=== PATIENT | male | born 2000 | race Caucasian/White ===

== ENCOUNTER 2019-02-09 08:30 | Outpatient (RCR) | payer OTHER, SELFPAY ==
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
--- NOTE | 2019-01-15 14:34 | HP.OTCOM ---
OT Communication Note 01/15/[address] LAKESHA MCGRATH Completed new measurements on this date as he has follow- up with Dr. Asher on Tuesday01/19/19. ROM: wrist - flexion: R Casted; unable at this time; L 0-71 - extension: R Casted; unable at this time; L 0-44 - radial deviation: R Casted; unable at this time; L 0-15 - ulnar deviation: R Casted; unable at this time; L 0-15 Forearm - pronation: R Casted; unable at this time; L 0-60 - supination: R Casted; unable at this time; L 0-86 Strength: - warehouse delivery driver in flexed position 2: R completed casted 62 , L 54 lbs - warehouse delivery driver in extended position 2: R completed casted 72 lbs , L 45 lbs - lateral pinch R completed in cast 15 , L 16 lbs - tripod R completed in cast 13 lbs, L 16 lbs - pincer R completed in cast 10 lbs, L 10 lbs 9-hole pegboard test: - R completed casted 20.90 s - L 21.13 s Jann has progressed significantly since initial evaluation. R wrist remains casted and therapy has focused on L hand, wrist, and forearm. L wrist remains stiff and further strengthening needed. Further therapy needed to promote progression to PLOF and address ergonomic, strength, and ROM concerns. Once cast is removed of R hand and wrist reassessment to be completed for RUE. Sincerely, Mitzy Mcdaniel, OTR/L Contact Information
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
== END 2019-02-09 17:00 | disposition home or self-care (01) ==
LOC: OT 08:30
PROVIDERS: Family Provider Pediatrics; PCP Pediatrics
DX: S72.302D Unspecified fracture of shaft of left femur, subsequent encounter for closed fracture with routine healing (principal); S52.202D Unspecified fracture of shaft of left ulna, subsequent encounter for closed fracture with routine healing; S92.302D Fracture of unspecified metatarsal bone(s), left foot, subsequent encounter for fracture with routine healing; D50.0 Iron deficiency anemia secondary to blood loss (chronic); R26.9 Unspecified abnormalities of gait and mobility
CPT/HCPCS: 97110; 97140; 97161; 97166; 97168; 97530; 97760

== ENCOUNTER 2020-04-14 14:30 | Outpatient (RCR) | payer OTHER, SELFPAY ==
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
--- NOTE | 2020-03-12 16:25 | HP.PTREVAL ---
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 Please see the progress note below for an update on the physical therapy plan of care! Subjective: Not having much knee pain as before. L knee pain to 2/10 this week intermittently. Worse with lots of activity. 0-1 without overdoing it. Sleeping well. Works out at home with upper body but does leg stretches, no lower body. Not working and nothing to return too. Basic ADLs are oK. Stairs difficult climbing up. Has to sit down to put on pants. Walking not a problem except limited volume. Avoiding leg workout of lunges squats, deadlifts. X rays two weeks ago and gap is coming together, no precautions. Back in 4 more weeks. Objective/Function: Walks I with slight L tredelenberg and some minor R hip drop due to L hip weakness. Steps are reciprocal without rail but weak eccentrically adn concentrically with body eight on steps on left side. L quad tight vs R and L knee AROM 0-115 vs 135 on R. Feels stretch but no pain. quad strength 4- L and HS 4/5. Overall progressing well and appropriate to progress to land based ex with fair prognosis toward continued appropriate goals. Plan Plan: 3x/week x 4 weeks for. 1. rollout and stretch L quad,. 2. L knee ROM APROM. 3. L hip strength, quad strength and progression toward squatting and RDL gently. Goals Goal 1:: Patient will be I with HEP and progression Goal Time Frame: 4-6 Weeks Goal Progress: stretches for LE Goal 2:: Patient will ambulate >300 feet with a normalized gait pattern Goal Time Frame: 2-4 Weeks, more Goal Progress: L trendelenberg, approp. Goal 3:: Patient will asc/desc 8 recip with 1 HR with good control Goal Time Frame: 4 weeks approp Goal Progress: iffy on control L, approp Goal 4:: Patient will demo an a +1 grade strength in LE Goal Time Frame: 4-6 Weeks Goal Progress: ? Goal 5:: Patient will maintain proper posture t/o tx session to demo increased core s/s Goal Time Frame: 4-6 Weeks Goal Progress: Goal Met Goal 6:: Patient will SLS for 30 seconds without increased muscle activation Goal Time Frame: 4-6 Weeks Goal Progress: Goal Met Anticipated Interventions Patient/Client Instruction: Educate patient on: Benefits of Fitness Program Therapeutic Exercise to Include: Strength training, Endurance training, Balance training, Agility training, Body mechanics, Postural training, Flexibilty training, Gait and locomotor training, Neuromotor development, In an aquatic setting, Dynamic Lumbar Stabilization For the Purpose of:: To improve muscle performance and motor function Please do not hesitate to contact me at [phone] by phone or if you have questions or concerns regarding this new plan of care! Sincerely, Jaylan Ireland, DPT, OCS, CSCS
--- NOTE | 2020-04-14 15:07 | HP.PTDCSUM ---
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 Discharge Date: Please see the following information for a summary of their discharge status. Subjective: I am still getting better LLE Pain Intensity (Out of 10): 0 % Improvement: 50 Objective/Function: L LE strength grossly 4+/5. Pt ambulates greater than 400 feet without difficulty. Pt negotiates stairs without difficulty. I with HEP. Rx goals achieved Goal 1:: Patient will be I with HEP and progression Goal Progress: Goal Met Goal 2:: Patient will ambulate >300 feet with a normalized gait pattern Goal Progress: Goal Met Goal 3:: Patient will asc/desc 8 recip with 1 HR with good control Goal Progress: Goal Met Goal 4:: Patient will demo an a +1 grade strength in LE Goal Progress: Goal Met Goal 5:: Patient will maintain proper posture t/o tx session to demo increased core s/s Goal Progress: Goal Met Goal 6:: Patient will SLS for 30 seconds without increased muscle activation Goal Progress: Goal Met Plan: discharge If there are questions or concerns regarding this patient's physical therapy, please feel free to call me at [phone]. Thank you for the referral of this patient. Sincerely, Cale Shipley, PT, ATC
== END 2020-04-14 19:00 | disposition home or self-care (01) ==
LOC: PT 14:30
PROVIDERS: PCP Internal Medicine
DX: S72.352 Displaced comminuted fracture of shaft of left femur (principal)
CPT/HCPCS: 97110; 97113; 97162; 97164

== ENCOUNTER 2020-05-26 12:13 | Emergency (ER) | payer OTHER, SELFPAY ==
[2020-05-26 12:14] VITALS: BP 126/81; PULSE 105; RESP 17; TEMP 36.6; O2SAT 100
[2020-05-26 12:15] VITALS: BP 126/81; PULSE 91; RESP 17; TEMP 36.6; O2SAT 100; BMI 19.0
[2020-05-26] MEDS: Morphine 4 MG/ML Syringe IV (12:46)
[2020-05-26] MEDS: Ondansetron 4 MG/2 ML Vial IV (12:47)
[2020-05-26] MEDS: 0.9% Normal Saline 1,000 ML 1000 ML IV (12:47)
--- NOTE | 2020-05-26 12:50 | ED.VIS.GEN ---
History of Present Illness Chief Complaint: Abd Pain Detail of Chief Complaint: Nausea, vomiting and diarrhea with abdominal pain Informant: Patient Onset: Yesterday, Weeks Timing: Continuous - Pain has been continuous, Waxes and wanes Quality: Pain Location: Abdomen diffuse Current Severity: Moderate Maximum Severity: Severe Worsened by: Vomiting and diarrhea Relieved by: Nothing Associated Symptoms: Subjective fever Narrative: Patient is a 19-year-old male who presents with abdominal pain that is generalized described as pain with waxing and waning intensity. This is associated with nausea and vomiting. He states he vomited 3 times since this morning. He has vomited 8-10 times since last night. Is had 8-10 loose stool since last evening. Denies blood or mucus in the stool. He denies blood in his emesis or coffee-ground in his emesis. He does report subjective fever. He has no exposure to anyone who has been diagnosed with Covid 19 or symptoms suggestive of COVID-19. He denies headache. He denies visual, ocular auditory symptoms. He denies rhinorrhea, congestion or postnasal drainage. Denies sore throat. He denies chest pain. He denies cough or shortness of breath. He denies urologic symptoms. He denies rash. He denies myalgias or arthralgias. Prior similar symptoms: No Recent Illness/Hospitalization: No - Past Medical History (1) No significant past medical history Status: Acute Past Medical History - Allergies and Home Meds Allergies/Adverse Reactions: Allergies No Known Allergies Allergy (Verified 05/26/20 12:14) Primary Care Physician: Natty Gallegos DO [Primary Care Provider] - Prior records reviewed: Yes Surgical History: appendectomy Lives: Alone Smoking Status: Never smoker Alcohol: None Drugs: None - Family History Maternal Family History: Reports: No pertinent history Review of Systems General: Reports: Chills, Fever, Subjective. Denies: Sweats, Weight loss Eyes: Denies: Visual changes - bilaterally, Blurred Vision - bilaterally ENT: Denies: Rhinorrhea, Sore throat Cardiovascular: Denies: Chest pain, Palpitations Respiratory: Denies: Dyspnea, Cough, Dyspnea on exertion Gastrointestinal: Reports: Abdominal pain, Nausea, Vomiting, Diarrhea. Denies: Constipation, Melena, Hematochezia Genitourinary: Denies: Dysuria, Hematuria, Frequency Musculoskeletal: Denies: Myalgias, Arthralgias, Neck pain, Back pain, Swelling, Extremity Pain, -, - Neurological: Reports: Weakness. Denies: Headache, Parasthesia Endocrine: Denies: Polyuria, Polydipsia Hematologic: Denies: Easy bruising, Easy bleeding Physical Exam Vital Signs/Narrative: Vital Signs Temp Pulse Resp BP Pulse Ox 05/26/20 12:15 97.8 F 91 17 126/81 H 100 05/26/20 12:14 97.8 F 105 H 17 126/81 H 100 Inital Vital Signs reviewed: Yes General: Well nourished, Well developed, No Acute Distress - Initial exam patient was actively vomited and limited. He was reassessed at 12 4 5. Head: Normocephalic, Atraumatic Eyes: Perrl, EOMI. Negative for: Pale conjunctiva, Scleral icterus ENT: No rhinorrhea, TM's clear, Dry mucous membranes Neck: Supple, Nontender, No lymphadenopathy, No JVD Cardiovascular: Regular rhythm, No murmurs, Normal S1, Normal S2, Tachycardia Respiratory: No distress, CTA bilaterally Abdomen: Soft, Nondistended, No masses, Tender. Negative for: Nontender, Normal bowel sounds, Guarding, Rebound tenderness, Hyperactive bowel sounds, Hepatomegaly, Splenomegaly, Mass, Pulsatile mass, Ventral hernia, Umbilical hernia Rectal: Deferred Back: Nontender, Normal Inspection Extremities: Nontender, No edema Skin: Normal color, No rash, No Trauma. Negative for: Cyanosis, Diaphoresis, Jaundice Neurological: Alert, Oriented x3, Cranial nerves II-XII grossly intact, Normal Strength, Normal Sensation Psychological: Normal affect, Normal Mood Diagnostic/Tx/Re-eval Laboratory Results 05/26/20 12:40 Sodium 138 Potassium 4.1 Chloride 105 Carbon Dioxide 24.0 Anion Gap 9 BUN 8 Creatinine 1.19 Estim Creat Clear Calc 88.20 Est GFR (MDRD) Af Amer 98 Est GFR (MDRD) Non-Af 81 BUN/Creatinine Ratio 6.7 L Glucose 128 H Calcium 9.7 - Medical Decision Making Presents with nausea, vomiting diarrhea. Suspect viral illness. Clinically is dehydrated. He will receive 1 L of normal saline and Zofran for his nausea and vomiting. Basic metabolic panel was obtained to assess electrolytes and specifically potassium and renal function. Patient was reassessed at 1440. His vomiting has ceased. He states the nausea is 95% improved. He was prescribed p.o. dicyclomine and Imodium for his pain and diarrhea. If he passes p.o. challenge will discharge to home with appropriate home-going striction and antiemetic and antispasmodic. ED Disposition - Plan for ED Patient: Disposition: Home or Assisted Living Diagnosis: Abdominal pain, vomiting, and diarrhea, Mild dehydration Instructions: ED Vomiting and Diarrhea Nonspecific Adult Prescriptions: Dicyclomine HCl [Bentyl] 20 mg PO TIDAC #20 cap Transmission Status: Pending to [facility] Loperamide [Imodium] 2 mg PO UD #10 cap Transmission Status: Pending to [facility] Ondansetron [Zofran Odt] 4 mg PO Q8H PRN PRN #10 tab PRN Reason: Nausea Transmission Status: Pending to [facility] Referrals: Natty Gallegos DO [Primary Care Provider] - 3-5 Days if not improving
[2020-05-26 13:01] LABS: Anion Gap 9 (5-15); BUN 8 mg/dL (7-18); BUN/Creat Ratio 6.7 RATIO (10-20); Calcium,Total 9.7 mg/dL (8.5-10.1); Chloride 105 mmol/L (98-107); Creatinine, Serum 1.19 mg/dL (0.70-1.30); EST Glomerular Filtration Rate 81 mL/min (>60); Est Glom Filt Rate - Afr Amer 98 mL/min (>60); Glucose 128 mg/dL (74-106); Potassium 4.1 mmol/L (3.5-5.1); Sodium Level 138 mmol/L (136-145)
[2020-05-26 14:31] VITALS: BP 110/47; PULSE 85; RESP 16; TEMP 37.5; O2SAT 95
[2020-05-26] MEDS: Dicyclomine 10 MG Capsule 20 MG PO (15:40)
[2020-05-26] MEDS: Loperamide 2 MG Capsule 4 MG PO (15:40)
== END 2020-05-26 15:44 | disposition home or self-care (01) ==
PROVIDERS: Emergency Provider Emergency Medicine; PCP Internal Medicine
DX: E86.0 Dehydration (principal); R19.7 Diarrhea, unspecified; R10.84 Generalized abdominal pain; R11.2 Nausea with vomiting, unspecified
CPT/HCPCS: 80048; 96361; 96374; 96375; 99285; J7030; J2405

== ENCOUNTER 2021-06-08 16:00 | Outpatient (RCR) | payer OTHER, SELFPAY ==
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
== END 2021-06-08 19:00 | disposition home or self-care (01) ==
LOC: PT 16:00
PROVIDERS: PCP Internal Medicine
DX: S83.522D Sprain of posterior cruciate ligament of left knee, subsequent encounter (principal); X58.XXXD Exposure to other specified factors, subsequent encounter; M17.12 Unilateral primary osteoarthritis, left knee
CPT/HCPCS: 97110; 97161

== ENCOUNTER 2022-01-14 00:51 | Emergency (ER) | payer OTHER, SELFPAY ==
[2022-01-14 00:53] VITALS: BP 144/93; PULSE 54; RESP 18; TEMP 36.1; O2SAT 100; BMI 19.0
--- NOTE | 2022-01-14 01:13 | ED.VIS.DENTA ---
HPI History of Present Illness Chief Complaint: Dental Informant: patient Onset/Context/Timing Onset: Today (about 20 hrs) Context: Gradual Onset Timing: Continuous Quality: aching/throbbing Location: left maxillary bicuspid Current Severity: Severe Maximum Severity: Severe Worsened by: eating/chewing Relieved by: - (nothing) Associated Symptoms Assocated Symptom - Dental: Negative for fever, jaw swelling or face swelling Narrative Narrative: Dental pain gradually started earlier in the day and is worsened, unable to sleep tonight due to the throbbing pain. No swelling or discharge or bleeding. Has an appointment for a dentist tomorrow, I just need to get through the night. [facility] Medical History Femur fracture Pain, dental Home Medications amoxicillin 500 mg tablet 500 mg PO TID #30 tabs 01/14/22 [Rx Last Taken Unknown] escitalopram oxalate 20 mg tablet 20 tab PO QHS 01/14/22 [History Last Taken Unknown] naproxen 500 mg tablet 500 mg PO BID PRN #14 tabs 01/14/22 [Rx Last Taken Unknown] Allergy/AdvReac Type Severity Reaction Status Date / Time No Known Allergies Allergy Verified 01/14/22 00:52 Social History Smoking Status: Never smoker ROS ROS ED Constitutional Constitutional ED: Denies chills or fever(s) Eyes Eyes: Denies change in vision or double vision ENT ENT ED: Reports dental pain; Denies sinus pain or throat swelling Cardiovascular Cardiovascular: Denies chest pain or palpitations Respiratory/Chest Respiratory/Chest: Denies cough or dyspnea Integumentary Denies abscess or rash Neurologic Neurologic: Denies headache(s), paresthesias or weakness EXAM Physical Exam Const Vital Signs: 01/14/22 00:53 Temperature 96.9 F L Temperature Source Temporal Pulse Rate 54 L Respiratory Rate 18 Blood Pressure 144/93 H Blood Pressure Mean 110 Pulse Ox 100 Oxygen Delivery Method Room Air Positive well nourished and well developed General Appearance ED: well developed and NAD HEENT HEENT Narrative: No trismus. Tender tooth #12. There is a very small superficial samantha at the anterior aspect of the base of that tooth near the gumline. Normal gingiva, no sign of gingivitis, necrotizing gingivitis, or bleeding. No abscess. Face and Sinus: sinuses nontender Throat: posterior oropharynx normal Eyes PERRL and EOMs intact bilaterally Neck no lymphadenopathy and supple Resp normal respiratory effort Neuro oriented x3 and CN's II-XII intact bilaterally Sensorium / Orientation: alert Gait (Neuro): normal gait Psych mental status grossly normal and thought process normal Skin no rashes or lesions noted and no wounds MDM MDM MDM Narrative Medical decision making narrative: Gave this patient a [place] here as well as naproxen, start him on amoxicillin, discharged home with family. Discharge Plan Triage Chief Complaint: Dental ED Provider: Anderson Diaz Dx/Rx/DC Orders Clinical Impression: Odontalgia, Caries Instructions: ED Dental Pain Prescriptions: New amoxicillin 500 MG tablet 500 mg PO TID Qty: 30 0RF naproxen 500 MG tablet 500 mg PO BID PRN Qty: 14 0RF No Action escitalopram oxalate 20 mg tablet 20 tab PO QHS Primary Care Provider: Natty Gallegos Referrals: Natty Gallegos, [Primary Care Provider] - Dentist,Your [STAFF PHYSICIAN] - Keep [facility]a appointment Disposition Disposition: Home, Self Care
[2022-01-14] MEDS: HYDROcodone Bitartrate/Apap 5/325 Tablet PO (01:18)
[2022-01-14] MEDS: Naproxen 250 MG Tablet 500 MG PO (01:18)
[2022-01-14] MEDS: AMOXICILLIN 500 MG CAPSULE PO (01:18)
== END 2022-01-14 01:37 | disposition home or self-care (01) ==
LOC: ED 01:33
PROVIDERS: Emergency Provider Emergency Medicine; PCP Internal Medicine; Visit Provider Emergency Medicine
DX: K08.89 Other specified disorders of teeth and supporting structures (principal); K02.9 Dental caries, unspecified
CPT/HCPCS: 99283

== ENCOUNTER 2022-04-21 05:01 | Emergency (ER) | payer OTHER, SELFPAY ==
[2022-04-21 05:02] VITALS: BP 137/56; PULSE 84; RESP 16; TEMP 38.5; O2SAT 98; BMI 19.1
[2022-04-21 05:05] VITALS: BP 137/56; PULSE 87; PULSE 89; RESP 19; RESP 22; TEMP 38.5; O2SAT 100; O2SAT 98
[2022-04-21] MEDS: Acetaminophen 325 MG Tablet 1000 MG PO (05:33)
[2022-04-21] MEDS: 0.9% Normal Saline 1,000 ML 999 ML IV ×2 (05:33→07:28)
[2022-04-21] MEDS: Ondansetron 4 MG/2 ML Vial IV (05:34)
[2022-04-21] MEDS: Morphine 4 MG/ML Syringe IV (05:34)
[2022-04-21] MEDS: dexAMETHasone 10 MG/ML Vial IV (05:42)
[2022-04-21 05:44] LABS: Absolute Lymphocyte Count 0.93 X10^3/uL (0.83-4.51); Basophil# 0.04 X10^3/uL; Basophil% 0.2 % (0-1); Eosinophil# 0.09 X10^3/uL; Eosinophils% 0.4 % (0-5); Hematocrit 38.9 % (40-54); Lymphocyte # 0.93 X10^3/ul (0.83-4.51); Lymphocyte % 3.6 % (19-41); Mean Corpuscular Hgb 33.1 pg (27.0-32.0); Mean Platelet Vol. 10.7 fl (6.2-12.0); Monocyte# 2.37 X10^3/uL; Monocyte% 9.3 % (0-10); NRBC Flagged by Analyzer 0 % (0-5); Neutrophil # 21.97 X10^3/uL (2.7-7.7); Neutrophil % 85.8 % (47-70); POSITIVE DIFFERENTIAL YES; Platelet Count 201 K/mm3 (150-450); RBC Distribution Width CV 12.4 % (11.6-14.6); RBC Distribution Width SD 41.9 fl (35.1-43.9); Red Blood Count 4.23 M/mm3 (4.6-6.2); White Blood Count 25.6 K/mm3 (4.4-11.0)
[2022-04-21 05:48] LABS: Differential Indicated SCAN CRITERIA MET
--- NOTE | 2022-04-21 05:53 | CT_ITS ---
INDICATION: FLANK PAIN WITH N/V X 1 DAY. PRIOR APPENDECTOMY EXAMINATION: CT Abdomen And Pelvis W/ Contrast Injection TECHNIQUE: Helically acquired images were obtained of the abdomen and pelvis following IV contrast. 2-D reconstructions reviewed. A radiation dose optimization technique was used for this scan. IV Contrast dosage and agent: 100 mL Isovue-370 Oral contrast: None. COMPARISON: Contrast enhanced CT abdomen and pelvis from 04/21/2017 FINDINGS: LOWER CHEST: No acute findings within the imaged lung bases. Heart size within normal limits. LIVER: Mild focal fat within the left lobe adjacent to falciform ligament. No concerning lesion. GALLBLADDER AND BILIARY TREE: No calcified gallstones identified. No gallbladder wall edema demonstrated. No significant biliary ductal dilation. PANCREAS: No discrete mass or peripancreatic edema. SPLEEN: Normal size without focal cystic or solid mass. ADRENAL GLANDS: Unremarkable. KIDNEYS AND URETERS: Normal renal size and position. No perinephric edema or hydronephrosis. No concerning lesion. PERITONEUM: Trace free pelvic fluid. No free air or abscess. RETROPERITONEUM: No retroperitoneal mass or pathologic fluid collection. BOWEL: Status post appendectomy. No bowel obstruction or significant bowel thickening. No focal inflammatory change. LYMPH NODES: No enlarged mesenteric or retroperitoneal lymph nodes. VESSELS: No acute findings. No abdominal aortic aneurysm. URINARY BLADDER: Unremarkable as visualized. REPRODUCTIVE ORGANS: Slightly enlarged prostate gland containing small dystrophic calcifications. ABDOMINAL WALL: No acute findings or significant hernia defect. BONES: Small chronic limbus defect at anterior L5 vertebral body. Vertebral body heights are preserved. Adequate alignment of the spine. No acute osseous abnormality. CT/Abdomen/Pelvis W IV Cont ONLY IMPRESSION: Trace free pelvic fluid of unknown etiology or clinical significance. No other evidence of acute intra-abdominal abnormality. Slightly enlarged prostate gland. Electronically Signed: Rober Wiggins MD at 7:14 EDT ,
--- NOTE | 2022-04-21 05:53 | RAD_ITS ---
INDICATION: fever EXAMINATION/TECHNIQUE: X-RAY - XR Chest 1 View COMPARISON: None. FINDINGS: LINES/DEVICES: None. LUNGS: No pulmonary edema or focal airspace consolidation. No sizable pleural effusion. No pneumothorax detected. MEDIASTINUM AND CARDIOVASCULAR STRUCTURES: Heart size within normal limits. Mediastinal contours unremarkable. BONES AND SOFT TISSUES: No acute findings. RAD/Chest 1 View (Portable) IMPRESSION: No radiographic evidence of acute cardiopulmonary disease. Electronically Signed: Rober Wiggins MD at 6:42 EDT ,
[2022-04-21 06:05] LABS: AST(SGOT) 16 U/L (15-37); Alanine Aminotransfer ALT/SGPT 21 U/L (16-61); Albumin, Serum 3.5 g/dL (3.2-5.0); Alkaline Phosphatase 85 U/L (45-117); Anion Gap 10 (5-15); BUN 13 mg/dL (7-18); BUN/Creat Ratio 10.8 RATIO (10-20); Bilirubin, Direct 0.27 mg/dL (0.00-0.30); Calcium,Total 9.3 mg/dL (8.5-10.1); Chloride 107 mmol/L (98-107); EST Glomerular Filtration Rate 79 mL/min (>60); Est Glom Filt Rate - Afr Amer 96 mL/min (>60); Globulin 3.7 g/dL (2.2-4.2); Glucose 134 mg/dL (74-106); Lipase 68 U/L (73-393); Magnesium 1.3 mg/dL (1.6-2.6); Potassium 3.5 mmol/L (3.5-5.1); Protein, Total 7.2 g/dL (6.4-8.2); Sodium Level 139 mmol/L (136-145)
[2022-04-21 06:40] LABS: Differential Comment SCANNED
[2022-04-21 06:43] LABS: Lactic Acid 1.4 mmol/L (0.4-1.9)
[2022-04-21 06:49] LABS: Color, Urine Yellow (Yellow); Glucose, Dipstick Normal (Normal); Leukocyte Esterase-Dipstick Negative /ul (Negative); Mucous, Urine 0 SEEN /hpf (<or=2+); Nitrite-Dipstick Negative (Negative); Occult Blood-Urine Negative /ul (Negative); Protein-Dipstick 15 mg/dl (Negative); Red Blood Cells-Urine 0 SEEN /hpf (0-5); Squamous Epithelial Cells - UA 0 SEEN /hpf (0-5); Urine Bilirubin Dipstick Negative (Negative); Urine Clarity Clear (Clear); Urine Urobilinogen 1 mg/dl (Normal); White Blood Cells 0 SEEN /hpf (0-5)
[2022-04-21 06:50] VITALS: BP 140/74; PULSE 74; RESP 16; TEMP 37.7; O2SAT 98
[2022-04-21 06:57] LABS: Ketone-Dipstick 150 mg/dl (Negative)
[2022-04-21 06:58] LABS: Amorphous Sediment 1+; Bacteria 1+ /hpf (None Seen)
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
[2022-04-21 07:30] VITALS: BP 109/51; PULSE 64; RESP 16; TEMP 37.2; O2SAT 97
[2022-04-21 13:47] LABS: Pathologist Review Reviewed
== END 2022-04-21 08:44 | disposition home or self-care (01) ==
PROVIDERS: Emergency Provider Emergency Medicine; PCP Internal Medicine; Visit Provider Emergency Medicine
DX: J02.9 Acute pharyngitis, unspecified (principal); R11.2 Nausea with vomiting, unspecified; E86.0 Dehydration; R50.9 Fever, unspecified; Z20.822 Contact with and (suspected) exposure to COVID-19; Z79.52 Long term (current) use of systemic steroids; Z90.89 Acquired absence of other organs
CPT/HCPCS: 71045; 74177; 80048; 80076; 81001; 83605; 83690; 83735; 85025; 87428; 87880; 96361; 96374; 96375; 99285; J7030; Q9967; A4216; J2405

== ENCOUNTER 2023-04-04 16:24 | Outpatient (RCR) | payer OTHER, SELFPAY ==
--- NOTE | 2023-06-21 09:53 | HP.PT.NRP ---
Patient Information Patient Information: GISELA COULTER was seen in my office for initial evaluation on 04/04/23. The following Plan of Care was established for this patient: POC Established Initial Frequency: 2-3x /Week Initial Duration: 4-6 Weeks Anticipated Interventions Patient/Client Instruction: Educate patient on: Condition and Plan of Care For the Purpose of:: To improve self management Therapeutic Exercise to Include: Strength training, Balance training, Body mechanics, Gait and locomotor training, Neuromotor development and Active ROM For the Purpose of:: To decrease pain, To increase ROM and To improve muscle performance and motor function Cryotherapy (ice pack, ice massage): Yes For the Purpose of:: To decrease pain Last Seen Last Seen: This patient was last seen in our office . Pertinent comments regarding their Physical therapy will appear below: Pt was evaluated for L knee pain on the date of 04/04/23. Pt has not returned through todays date and is discontinued at this time. At this point I will be discontinuing this patient from physical therapy. I would be happy to see this patient again in the future if found appropriate by the physician. Thank you! Cale Shipley, PT, ATC Balance/Gait/Functional tests Balance/Special Test Scores Lower Extremity Functional Score: 60
== END 2023-04-04 19:00 | disposition home or self-care (01) ==
LOC: PT 16:24
PROVIDERS: PCP Internal Medicine; Referring Provider Physician Assistant; Visit Provider Physician Assistant
DX: M23.42 Loose body in knee, left knee (principal); M94.262 Chondromalacia, left knee; M24.669 Ankylosis, unspecified knee; T84.84XD Pain due to internal orthopedic prosthetic devices, implants and grafts, subsequent encounter
CPT/HCPCS: 97161

== ENCOUNTER 2023-10-11 15:30 | Outpatient (RCR) | payer OTHER, SELFPAY ==
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
--- NOTE | 2023-10-11 16:21 | HP.PTREVAL_ITS ---
Re-Evaluation Intro: JATIN ALEXANDER, It has been my pleasure to treat GISELA COULTER over the last 20 visits for s/p L ACL/PCL repair 08/04/23. Please see the progress note below for an update on the physical therapy plan of care! Subjective Subjective: 9 weeks out. going the right way, no pain. Last pain was 3 days ago from soreness. Sleep is Ok. HEP : Went to level !! yesterday adn did workout. To doctor in 2 weeks. Working at computer without difficulty. Life is normal. Wants to running. Objective Objective/Function: 0-130(140 R) AROM supine adn 125 prone. Normal walk and steps reciprocal without rail. Plan Plan Plan: f/u 3 weeks after doctor visit, pt to do workout at gym adn home in the meantime. Plan to starat gentle jogging, plyo next session as neede and progress via HEP as able. Balance/Gait/Functional tests Balance/Special Test Scores Lower Extremity Functional Score: 55 Goals Goals Goal 1:: ST: 0-90 AROM without pain Goal Time Frame: 2-4 Weeks Goal Progress: Goal Met Goal 2:: sleep without waking Goal Time Frame: 2-4 Weeks Goal Progress: Goal Met Goal 3:: LT goals: Full aROM without pain to 140 flexion Goal Time Frame: 6-8 Weeks Goal Progress: 130 no pain but stiff Goal 4:: Walk as allowed and steps reciprocally without bracing or deviations i9n community Goal Time Frame: 6-8 Weeks Goal Progress: Goal Met Goal 5:: I appropriate HEP strength to continue progress Goal Time Frame: 6-8 Weeks Goal Progress: I gym adn home Goal 6:: Plan to start jogging Goal Time Frame: 12-16 Weeks Goal Progress: appropriate. Anticipated Interventions Anticipated Interventions Patient/Client Instruction: Educate patient on: Condition For the Purpose of:: To decrease pain, To increase ROM, To improve nutrient delivery to tissue, To improve muscle performance and motor function, To increase tolerance to activity/condition/position, To improve ability of physic al actions for home/community/work/leisure and To improve gait and locomotor functions Therapeutic Exercise to Include: Strength training, Postural training, Flexibilty training, Gait and locomotor training, Passive ROM and Active ROM For the Purpose of:: To decrease pain, To decrease swelling/inflammation, To increase ROM, To improve nutrient delivery to tissue, To improve muscle performance and motor function, To increase tolerance to activity/condition/position, To improve ability of physical actions for home/community/work/leisure and To improve gait and locomotor functions Manual Therapy Techniques to Include: Scar massage, Passive ROM and Soft tissue mobilization For the Purpose of:: To decrease pain, To increase ROM and To improve nutrient delivery to tissue Functional electric stimulation: Yes Cryotherapy (ice pack, ice massage): Yes For the Purpose of:: To decrease pain, To decrease swelling/inflammation and To increase ROM Re-Evaluation Ending Re-evaluation ending: Please do not hesitate to contact me at [phone] by phone or if you have questions or concerns regarding this new plan of care! Sincerely, Jaylan Ireland, DPT, OCS, CSCS
--- NOTE | 2023-12-27 18:18 | HP.PT.NRP ---
Patient Information Patient Information: GISELA COULTER was seen in my office for initial evaluation on 08/12/23. The following Plan of Care was established for this patient: POC Established Initial Frequency: 3x /Week Initial Duration: 4 Months Anticipated Interventions Patient/Client Instruction: Educate patient on: Condition For the Purpose of:: To decrease pain, To increase ROM, To improve nutrient delivery to tissue, To improve muscle performance and motor function, To increase tolerance to activity/condition/position, To improve ability of physical actions for home/community/work/leisure and To improve gait and locomotor functions Therapeutic Exercise to Include: Strength training, Postural training, Flexibilty training, Gait and locomotor training, Passive ROM and Active ROM For the Purpose of:: To decrease pain, To decrease swelling/inflammation, To increase ROM, To improve nutrient delivery to tissue, To improve muscle performance and motor function, To increase tolerance to activity/condition/position, To improve ability of physical actions for home/community/work/leisure and To improve gait and locomotor functions Manual Therapy Techniques to Include: Scar massage, Passive ROM and Soft tissue mobilization For the Purpose of:: To decrease pain, To increase ROM and To improve nutrient delivery to tissue Functional electric stimulation: Yes Cryotherapy (ice pack, ice massage): Yes For the Purpose of:: To decrease pain, To decrease swelling/inflammation and To increase ROM Last Seen Last Seen: This patient was last seen in our office 10/11/23. Pertinent comments regarding their Physical therapy will appear below: Pt seen 20 visits of POC and was 80% better. He was to f/u a month later to ensure progress but did not attend. At this point, it has been over 2 months and I will discontinue from my care. At this point I will be discontinuing this patient from physical therapy. I would be happy to see this patient again in the future if found appropriate by the physician. Thank you! Jaylan Ireland, DPT, OCS, CSCS Balance/Gait/Functional tests Balance/Special Test Scores Lower Extremity Functional Score: 55
== END 2023-10-11 19:00 | disposition home or self-care (01) ==
LOC: PT 15:30
PROVIDERS: PCP Internal Medicine
DX: S83.512D Sprain of anterior cruciate ligament of left knee, subsequent encounter (principal); S83.52 Sprain of posterior cruciate ligament of knee
CPT/HCPCS: 97014; 97110; 97161; 97530; G0283

== ENCOUNTER 2024-11-15 23:07 | Emergency (ER) | payer OTHER, SELFPAY ==
[2024-11-15 23:11] VITALS: BP 116/80; PULSE 83; RESP 18; TEMP 36.3; O2SAT 98; BMI 18.1
[2024-11-15 23:15] VITALS: BP 116/80; PULSE 83; RESP 18; TEMP 36.3; O2SAT 98
[2024-11-16 00:11] LABS: Red Blood Cells-Urine 0 SEEN /hpf (0-5)
[2024-11-16 00:32] LABS: Color, Urine Amber (Yellow); Glucose, Dipstick Normal (Normal); Ketone-Dipstick Negative (Negative); Leukocyte Esterase-Dipstick 25 /ul (Negative); Nitrite-Dipstick Negative (Negative); Occult Blood-Urine 250 /ul (Negative); Protein-Dipstick 30 mg/dl (Negative); Urine Bilirubin Dipstick Negative (Negative); Urine Clarity Sl. Cloudy (Clear); Urine Urobilinogen Normal (Normal)
[2024-11-16 00:57] LABS: Bacteria 3+ /hpf (None Seen); Mucous, Urine 3+ /hpf (<or=2+); White Blood Cells 5-10 SEEN /hpf (0-5)
[2024-11-16 00:58] LABS: Calcium Oxalate Crystals Ur 2+ /hpf (<or=2+); Hyaline Cast 0-5 SEEN /lpf (0-5)
[2024-11-16 01:00] VITALS: BP 99/61; PULSE 64; RESP 16; TEMP 36.9; O2SAT 97
[2024-11-16 02:00] VITALS: BP 119/81; PULSE 53; RESP 18; TEMP 36.9; O2SAT 97
--- NOTE | 2024-11-16 02:05 | CT_ITS ---
PROCEDURE: ABDOMEN/PELVIS WITHOUT CONT 11/16/2024 REASON FOR EXAM: RIGHT FLANK PAIN TECHNIQUE: Abdomen and pelvis CT without intravenous contrast. Noncontrast technique limits evaluation of the abdominal and pelvic viscera. Coronal and Sagittal reconstruction series were provided. One or more dose reduction techniques were used (e.g., Automated exposure control, adjustment of the mA and/or kV according to patient size, use of iterative reconstruction technique). PATIENT PREPARATION: Per protocol ORAL CONTRAST TYPE: None. COMPARISON: 04/21/2022 FINDINGS: The lung bases are clear. The liver, gallbladder, adrenal glands, left kidney, pancreas and spleen appear within limits on noncontrast imaging. A 2 mm calcification is seen at the area of the proximal to mid right ureter at the L4 level which is not seen on the prior study and consistent with right ureteral stone. There is no right hydronephrosis, intrarenal stones or perinephric stranding. May correlate further for hematuria. Abdominal aorta appears within limits on noncontrast imaging without aneurysm. No adenopathy identified. No bowel dilation or free air. Status post apparent appendectomy. The bladder and prostate appears within limits. A very small amount of pelvic free fluid is an unexpected finding in a male patient. Incidental note of a limbus vertebrae at the L5 vertebral body, anatomic variant. Partially imaged retrograde left femoral intramedullary nail. CT/Abdomen/Pelvis without Cont IMPRESSION: A 2 mm calcification is seen at the area of the proximal to mid right ureter at the L4 level which is not seen on the prior study and consistent with right ureteral stone. There is no right hydronephrosis, int rarenal stones or perinephric stranding. May correlate further for hematuria. A very small amount of pelvic free fluid is an unexpected finding in a male pat ient. Reading Location: [id number]
[2024-11-16] MEDS: 0.9% Normal Saline (1000mL) 1,000 ML 999 ML IV (02:13)
[2024-11-16 02:26] LABS: Absolute Lymphocyte Count 2.22 X10^3/uL (0.83-4.51); Basophil# 0.05 X10^3/uL; Basophil% 0.4 % (0-1); Eosinophil# 0.11 X10^3/uL; Eosinophils% 0.8 % (0-5); Lymphocyte # 2.22 X10^3/ul (0.83-4.51); Mean Corp Hgb Conc 35.9 g/dL (32-36); Mean Corpuscular Hgb 31.6 pg (27.0-32.0); Mean Platelet Vol. 10.2 fl (6.2-12.0); Monocyte# 0.62 X10^3/uL; Monocyte% 4.7 % (0-10); NRBC Flagged by Analyzer 0 % (0-5); Neutrophil # 10.02 X10^3/uL (2.7-7.7); Neutrophil % 76.7 % (47-70); Platelet Count 212 K/mm3 (150-450); RBC Distribution Width CV 12.3 % (11.6-14.6); RBC Distribution Width SD 40.4 fl (35.1-43.9); Red Blood Count 4.43 M/mm3 (4.6-6.2); White Blood Count 13.1 K/mm3 (4.4-11.0)
[2024-11-16] MEDS: Ceftriaxone 1 GM/50 ML BAG IV (02:40)
[2024-11-16 03:00] VITALS: BP 113/51; PULSE 51; RESP 16; O2SAT 99
--- NOTE | 2024-11-16 03:03 | EX.ED.DYSGE1 ---
HPI History of Present Illness Chief Complaint: Complaint Informant: patient Narrative Narrative: Patient is a 24-year-old male who denies any significant past medical history. He states over the past week he has noticed intermittent pain along the right low back/abdomen. He states with this there has been discoloration to his urine intermittently which he was unsure as blood or apparently due to dehydration. He states that this evening the pain was more intense than it has been throughout the week which concerned him and therefore he comes in for evaluation. He denies any testicular masses or swelling. He denies any penile discharge or concern for [facility] Medical History Femur fracture Pain, dental Home Medications ?Medication ?Instructions ?Recorded ?Last Taken ?Type escitalopram oxalate 20 mg tablet 20 tab PO QHS 01/14/22 Unknown History amoxicillin 875 mg tablet 875 mg PO BID 7 days #14 tabs 04/21/22 Unknown Rx hydrocodone-acetaminophen 5-325mg 1 tab PO Q6H PRN pain 3 days #12 04/21/22 Unknown Rx 5mg-325mg tabs ondansetron 4 mg disintegrating 4 mg PO TID PRN nausea and 04/21/22 Unknown Rx tablet vomiting #21 tabs prednisone 20 mg tablet 40 mg (2 x 20 mg) PO DAILY 5 days 04/21/22 Unknown Rx #10 tabs cephalexin 500 mg capsule 500 mg PO TID 7 days #21 caps 11/16/24 Unknown Rx ibuprofen 600 mg tablet 600 mg PO 4X/DAY PRN pain #40 tabs 11/16/24 Unknown Rx tamsulosin 0.4 mg capsule (Flomax) 0.4 mg PO DAILY 14 days #14 caps 11/16/24 Unknown Rx Allergy/AdvReac Type Severity Reaction Status Date / Time No Known Allergies Allergy Verified 11/15/24 23:11 Social History Smoking Status: Never smoker ROS ROS ED Constitutional Constitutional ED: Denies chills or fever(s) ENT ENT ED: Denies sore throat Cardiovascular Cardiovascular: Denies chest pain Respiratory/Chest Respiratory/Chest: Denies cough or dyspnea Gastrointestinal Gastrointestinal: Reports abdominal pain; Denies diarrhea, nausea or vomiting Genitourinary Genitourinary ED: Reports hematuria; Denies dysuria Musculoskeletal Musculoskeletal: Reports back pain Integumentary Denies rash Neurologic Neurologic: Denies headache(s) Hematologic/Lymphatic Hematologic/Lymphatic: Denies easy bleeding or easy bruising EXAM Physical Exam Const Vital Signs: 11/15/24 23:11 11/15/24 23:15 11/16/24 01:00 Temperature 97.4 F L 97.4 F L 98.5 F Temperature Source Temporal Temporal Oral Pulse Rate 83 83 64 Respiratory Rate 18 18 16 Blood Pressure 116/80 116/80 99/61 Blood Pressure Mean 92 92 73 Pulse Ox 98 98 97 Oxygen Delivery Method Room Air Room Air Room Air 11/16/24 02:00 11/16/24 03:00 11/16/24 03:12 Temperature 98.5 F 98.5 F Temperature Source Oral Pulse Rate 53 L 51 L 51 L Respiratory Rate 18 16 16 Blood Pressure 119/81 H 113/51 L 113/51 L Blood Pressure Mean 93 71 71 Pulse Ox 97 99 99 Oxygen Delivery Method Room Air Room Air Positive well nourished and well developed General Appearance ED: well developed; Negative for pallor HEENT HEENT Narrative: Normocephalic atraumatic Eyes PERRL and EOMs intact bilaterally General Eye ED: Negative for scleral icterus Neck supple Neck Narrative: No nuchal rigidity or meningeal signs noted Resp normal respiratory effort and clear to auscultation bilaterally Cardio regular rate and regular rhythm Rate: other Other Details: Regular rate and rhythm without murmurs rubs or gallops Radial and carotid pulses are equal and symmetric GI normal to inspection, nondistended, normoactive bowel sounds, non-tender, non-distended and no masses GI Narrative: No voluntary guarding or rigidity or pulsatile mass Auscultation: normoactive bowel sounds Palpation: soft Narrative: Patient deferred Back/Spine Back/Spine Narrative: Mild right CVA pain noted Extremity normal to inspection Neuro oriented x3, CN's II-XII intact bilaterally and no sensory deficits noted Sensorium / Orientation: alert Motor Exam: strength 5/5 throughout Psych mental status grossly normal Skin no rashes or lesions noted and no wounds Skin Narrative: No overlying soft tissue changes to suggest trauma or infection General Skin Exam: Negative for jaundice or pallor MDM MDM MDM Narrative Medical decision making narrative: Patient arrived to the ER stable vitals and with report of intermittent pain and urine discoloration there is concern for kidney stone. Patient also could have UTI versus pyelonephritis versus STD. The patient states that there is no discharge and he does not have any concern for STD and therefore does not want testing. Blood work revealed mild leukocytosis with slight bump to his absolute neutrophil count concerning for infection. Urine sample did show +3 bacteria with 5-10 white blood cells and large amount of blood. This is concerning for infection and/or stone. Therefore noncontrast CT was obtained which did confirm a 2 mm stone in the right ureter. On reevaluation he is resting comfortably his vitals are stable. Exam does not show signs of acute kidney injury or urosepsis. Therefore he will be given antibiotics as well as pain control and is otherwise safe to follow-up with urology as an outpatient. History & Record Review Discussion w/independent historian: Patient Lab Data Attestation: I reviewed the patient's lab results. Labs: Laboratory Results - last 24 hr 11/15/24 11/16/24 00:05 02:14 WBC 13.1 H RBC 4.43 L Hgb 14.0 Hct 39.0 L MCV 88.0 MCH 31.6 MCHC 35.9 RDW Std Deviation 40.4 RDW Coeff of Silvano 12.3 Plt Count 212 MPV 10.2 Immature Gran % (Auto) 0.400 Neut % (Auto) 76.7 H Lymph % (Auto) 17.0 L Crowley % (Auto) 4.7 Eos % (Auto) 0.8 Baso % (Auto) 0.4 Absolute Neuts (auto) 10.0 H Absolute Lymphs (auto) 2.22 Nucleated RBC % 0 Sodium 139 Potassium 4.2 Chloride 106 Carbon Dioxide 25.5 Anion Gap 7 BUN 10 Creatinine 0.97 Estim Creat Clear Calc 98.84 Est GFR (MDRD) Non-Af 110 BUN/Creatinine Ratio 10.7 Glucose 105 H Calcium 9.3 Urine Color Florinda Urine Clarity Sl. Cloudy Urine pH 6.0 Ur Specific [place] 1.020 Urine Protein 30 H Urine Glucose (UA) Normal Urine Ketones Negative Urine Occult Blood 250 H Urine Nitrite Negative Urine Bilirubin Negative Urine Urobilinogen Normal Ur Leukocyte Esterase 25 H Urine RBC 0 SEEN Urine WBC 5-10 SEEN Ur Squamous Epith Cells Not Reportable Calcium Oxalate Crystal 2+ Urine Bacteria 3+ Hyaline Casts 0-5 SEEN Urine Mucus 3+ Radiography Diagnostic Testing: Clinical Impression(s) from Imaging Studies Abdomen/Pelvis CT 11/16/24 02:05 IMPRESSION: A 2 mm calcification is seen at the area of the proximal to mid right ureter at the L4 level which is not seen on the prior study and consistent with right ureteral stone. There is no right hydronephrosis, intrarenal stones or perinephric stranding. May correlate further for hematuria. A very small amount of pelvic free fluid is an unexpected finding in a male patient. Reading Location: [id number] Discharge Plan Triage Chief Complaint: Complaint ED Provider: Orlando Johnson Dx/Rx/DC Orders Clinical Impression: Kidney stone, Renal colic, UTI (urinary tract infection) Instructions: ED Kidney Stone with Pain, ED Urinary Tract Infections in Men Prescriptions: New cephalexin 500 mg capsule 500 mg PO TID 7 Days Qty: 21 0RF tamsulosin [Flomax] 0.4 mg capsule 0.4 mg PO DAILY 14 Days Qty: 14 0RF ibuprofen 600 mg tablet 600 mg PO 4X/DAY PRN (Reason: pain) Qty: 40 0RF No Action escitalopram oxalate 20 mg tablet 20 tab PO QHS prednisone 20 mg tablet 40 mg PO DAILY 5 Days Qty: 10 0RF ondansetron 4 mg tablet,disintegrating 4 mg PO TID PRN (Reason: nausea and vomiting) Qty: 21 0RF amoxicillin 875 mg tablet 875 mg PO BID 7 Days Qty: 14 0RF hydrocodone-acetaminophen 5-325 mg tablet 1 tab PO Q6H PRN (Reason: pain) 3 Days Qty: 12 0RF Primary Care Provider: Care Physician,No Primary Referrals: Bob Mays MD [Med Staff - Active Staff] - Care Physician,No Primary [Primary Care Provider] - Activity Restrictions/Additional Instructions: Please keep yourself well-hydrated and stay active to help pass your kidney stone. If your pain is uncontrolled with the provided medications or you develop a fever or have any further concerns please return to the ER for repeat evaluation. Print Language: Spanish Disposition Disposition: Home, Self Care Discharge Date/Time: 11/16/24 03:41
[2024-11-16 03:04] LABS: Anion Gap 7 (5-15); BUN 10 mg/dL (4-19); BUN/Creat Ratio 10.7 RATIO (10-20); Calcium,Total 9.3 mg/dL (7.6-11.0); Carbon Dioxide 25.5 mmol/L (21.0-32.0); Chloride 106 mmol/L (98-108); Creatinine, Serum 0.97 mg/dL (0.70-1.20); EST Glomerular Filtration Rate 110 (>60); Estimated Creatinine Clearance 98.84 ml/min (50-250); Glucose 105 mg/dL (70-99); Potassium 4.2 mmol/L (3.3-5.1); Sodium Level 139 mmol/L (133-145)
[2024-11-16 03:12] VITALS: BP 113/51; PULSE 51; RESP 16; TEMP 36.9; O2SAT 99
[2024-11-16] MEDS: Ketorolac 30 MG/ML Syringe IV (03:16)
== END 2024-11-16 03:41 | disposition home or self-care (01) ==
PROVIDERS: Emergency Medicine; Emergency Provider Emergency Medicine; Visit Provider Emergency Medicine
DX: N20.2 Calculus of kidney with calculus of ureter (principal); N39.0 Urinary tract infection, site not specified; R31.9 Hematuria, unspecified
CPT/HCPCS: 74176; 80048; 81001; 85025; 87086; 96365; 96375; 99283; A4216

== ENCOUNTER → 2025-01-24 | Outpatient (CLI) | payer OTHER, SELFPAY | END | disposition home or self-care (01) | LOC: LABSPEC 15:45 | PROVIDERS: Referring Provider Urology; Visit Provider Urology | DX: N21.9 Calculus of lower urinary tract, unspecified (principal) | CPT/HCPCS: 82360 ==

== ENCOUNTER → 2025-07-09 | Outpatient (CLI) | payer OTHER, SELFPAY ==
[2025-07-09 12:24] LABS: Hematocrit 42.4 % (40-54); Hemoglobin 15.3 g/dL (13.0-16.5); Immature Granulocytes Count 0.010 X10^3/uL (0.0-0.0); Mean Corp Hgb Conc 36.1 g/dL (32-36); Mean Corpuscular Volume 87.4 fL (80-94); Mean Platelet Vol. 10.5 fl (6.2-12.0); NRBC Flagged by Analyzer 0 % (0-5); Platelet Count 241 K/mm3 (150-450); RBC Distribution Width CV 12.4 % (11.6-14.6); RBC Distribution Width SD 39.5 fl (35.1-43.9); Red Blood Count 4.85 M/mm3 (4.6-6.2); White Blood Count 6.3 K/mm3 (4.4-11.0)
[2025-07-09 12:59] LABS: AST(SGOT) 24 U/L (<=37); Alanine Aminotransfer ALT/SGPT 32 U/L (<=46); Albumin, Serum 4.4 g/dL (3.5-5.0); Alkaline Phosphatase 73 U/L (40-129); Anion Gap 9 (7-18); BUN 8 mg/dL (4-19); BUN/Creat Ratio 9.5 RATIO (10-20); Calcium,Total 9.5 mg/dL (7.6-11.0); Carbon Dioxide 26.1 mmol/L (20.0-29.0); Chloride 106 mmol/L (96-106); Cholesterol 127 mg/dL (<=200); Globulin 2.5 g/dL (2.2-4.2); Glucose 98 mg/dL (70-99); Low Density Lipoprotein Calc. 62 mg/dL; Potassium 4.1 mmol/L (3.5-5.1); Triglycerides 46 mg/dL; Very Low Density Lipoprotein 9 mg/dL (5-40); cholesterol:hdl ratio screen 2.36
== END | disposition home or self-care (01) ==
LOC: BFHLAB 09:36
PROVIDERS: PCP Nurse Practitioner Family; Visit Provider Nurse Practitioner Family
DX: Z00.01 Encounter for general adult medical examination with abnormal findings (principal); E03.9 Hypothyroidism, unspecified
CPT/HCPCS: 36415; 80053; 80061; 84439; 84443; 85025